=== PATIENT | male | born 1985 | race Hispanic/Latino ===

== ENCOUNTER 2020-04-12 14:14 | Inpatient (IN) | payer BC, OTHER ==
[~2020-04-12] VITALS: Ht 170.2 cm; Wt 77.1 kg
--- OUTSIDE RECORDS SUMMARY | 2020-04-12 14:16 | XMS REPORT | Continuity of Care Document ---
Author Author [facility] Organization [facility] Address [address] [place] [address] Phone Unavailable Care Team Providers Care Camp Dining Room Attendant Name Role Phone Unavailable Unavailable Payers Payer Name Policy Type Policy Number Effective Date Expiration Date S ource Problems This patient has no known problems. Allergies, Adverse Reactions, Alerts Allergy Name Allergy Type Status Severity Reaction(s) Onset Date Inacti ve Date Treating Clinician Comments Source No Known Allergies DA Active U 2020-04-10 00:00:00 [facility] No Known Allergies DA Active U 2019-01-28 00:00:00 [facility] No Known Allergies DA Active U 2017-06-08 00:00:00 [facility] Medications This patient has no known medications. Procedures This patient has no known procedures. Results Test Description Test Time Test Comments Results Result Comments Source STREPTOCOCCUS PCR SCREEN 2020-04-10 16:52:00 Test Item STREPTOCOCCUS DYSGALACTIAE (test code = STREPGC) NEGATIVE FOR G/C N EGATIVE STREPA MOLECULAR (test code = STREPAMOL) NEGATIVE FOR GRP A NEGATIV E URINALYSIS [id number] 15:05:00* Test Item Value Reference Range Interpretation Comments UA COLOR (test code = COLU) YELLOW YELLOW UA APPEARANCE (test code = APPU) HAZY CLEAR A UA GLUCOSE DIPSTICK (test code = DGLUU) NEGATIVE mg/dL NEGATIVE UA BILIRUBIN DIPSTICK (test code = BILU) NEGATIVE NEGATIVE UA KETONE DIPSTICK (test code = KETU) TRACE mg/dL NEGATIVE UA SPECIFIC GRAVITY (test code = SGU) 1.025 1.001-1.035 UA BLOOD DIPSTICK (test code = ROCIO) NEGATIVE NEGATIVE UA PH DIPSTICK (test code = CARLOS) 6.0 5.0-8.0 UA PROTEIN DIPSTICK (test code = PROU) NEGATIVE mg/dL Neg-15 UA UROBILINIOGEN DIPSTICK (test code = URO) 1 mg/dL (1+) mg/dL 0.0 -0.2 UA NITRITE DIPSTICK (test code = REBECCA) NEGATIVE NEGATIVE UA LEUKOCYTE ESTERASE W REFLEX (test code = LEUUR) NEGATIVE NEG ATIVE UA WBC (test code = WBCU) per HPF 0-5 UA RBC (test code = RBCU) per HPF 0-5 UA EPITHELIAL CELLS (test code = EPIU) per HPF Few UA BACTERIA (test code = BACU) per HPF NONE Urine Source? Clean CatchURINALYSIS [id number] 15:05:00* Test Item Value Reference Range Interpretation Comments UA COLOR (test code = COLU) YELLOW YELLOW UA APPEARANCE (test code = APPU) HAZY CLEAR A UA GLUCOSE DIPSTICK (test code = DGLUU) NEGATIVE mg/dL NEGATIVE UA BILIRUBIN DIPSTICK (test code = BILU) NEGATIVE NEGATIVE UA KETONE DIPSTICK (test code = KETU) TRACE mg/dL NEGATIVE UA SPECIFIC GRAVITY (test code = SGU) 1.025 1.001-1.035 UA BLOOD DIPSTICK (test code = ROCIO) NEGATIVE NEGATIVE UA PH DIPSTICK (test code = CARLOS) 6.0 5.0-8.0 UA PROTEIN DIPSTICK (test code = PROU) NEGATIVE mg/dL Neg-15 UA UROBILINIOGEN DIPSTICK (test code = URO) 1 mg/dL (1+) mg/dL 0.0 -0.2 UA NITRITE DIPSTICK (test code = REBECCA) NEGATIVE NEGATIVE UA LEUKOCYTE ESTERASE W REFLEX (test code = LEUUR) NEGATIVE NEG ATIVE UA WBC (test code = WBCU) 0-5 per HPF 0-5 UA RBC (test code = RBCU) 0-2 #/HPF 0-5 UA EPITHELIAL CELLS (test code = EPIU) FEW per HPF FEW UA BACTERIA (test code = BACU) FEW #/HPF NONE A UA HYALINE CAST (test code = HYALU) 0-2 #/LPF 0-5 UA MUCUS (test code = MUCU) MANY #/LPF FEW A Urine Source? Clean Catch- XR CHEST 1 [id number] 13:03:00 FAX: Joyce Rich NP [place]: St: REG FAX: Meño Sandra [phone] Name: JOAQUIN DOYLE [facility] : 1985 Age/S: 34/M [address] [facility] Unit #: [id number] Loc: [place] [address] Phys: Joyce Rich NP Acct: [id number] Dis Date: Status: REG ER PHONE #: [phone] Exam Date: 04/10/2020 1245 FAX #: [phone] Reason: CODE SEPSIS EXAMS: CPT CODE: [id number] XR CHEST 1 V 89970 HISTORY: Sepsis. COMPARISON: March 20, 2015. Location: [facility]. No acute infiltrates, effusion or congestion is noted. Suboptimal inspiration. Dependent changes. Mild cardiomegaly. IMPRESSION: No acute infiltrates, effusion or congestion. at 1303 Reported and signed by: Nick Dowd M.D. CC: Joyce Rich NP; Meño Sandra MD Technologist: Gita Gonsalez(R) Trnscrd Date/Time/By: 04/10/2020 (0749) : By: [email or web address] Orig Print D/T: S: 12/2019 (2927) PAGE 1 Signed Repo rt BASIC METABOLIC [id number] 12:53:00* Test Item Value Reference Range Interpretation Comments SODIUM (test code = NA) 136 mmol/L 136-145 N POTASSIUM (test code = K) 3.8 mmol/L 3.5-5.1 N CHLORIDE (test code = CL) 102.0 mmol/L 98-107 N CARBON DIOXIDE (test code = CO2) 27.0 mmol/L 21-32 N ANION GAP (test code = GAP) 10.8 10-20 N GLUCOSE (test code = GLU) 88 mg/dL 74-106 N BLOOD UREA NITROGEN (test code = BUN) 13 mg/dL 7-18 N GLOMERULAR FILTRATION RATE (test code = GFR) > 60 mL/min >=60 Estimated GFR by using Modified MDRD formula.Chronic kidney disease is defined as either kidney damageor GFR <60 mL/min/1.73 m2 for >3 months. CREATININE (test code = CREAT) 1.10 mg/dL 0.7-1.3 N BUN/CREATININE RATIO (test code = BUN/CREA) 11.5 10-20 N CALCIUM (test code = CA) 8.7 mg/dL 8.5-10.1 N HEPATIC FUNCTION [id number] 12:53:00* Test Item Value Reference Range Interpretation Comments TOTAL PROTEIN (test code = PROT) 8.4 gram/dL 6.4-8.2 H ALBUMIN (test code = ALB) 3.8 g/dL 3.4-5.0 N GLOBULIN (test code = GLOB) 4.6 gram/dL 2.7-4.2 H ALBUMIN/GLOBULIN RATIO (test code = A/G) 0.8 0.75-1.50 N BILIRUBIN TOTAL (test code = BILT) 0.40 mg/dL 0.0-1.0 N BILIRUBIN DIRECT (test code = BILD) 0.18 mg/dL 0.0-0.20 N SGOT/AST (test code = AST) 12 IUnit/L 15-37 L SGPT/ALT (test code = ALT) 19 IUnit/L 12-78 N ALKALINE PHOSPHATASE TOTAL (test code = ALKP) 73 IUnit/L 45-117 N Note change in reference range due to change in reagent. [id number] 12:53:00* Test Item Value Reference Range Interpretation Comments TROPONIN-I (test code = TROPI) <0.015 ng/mL 0-0.045 N LACTIC [id number] 12:53:00* Test Item Value Reference Range Interpretation Comments LACTIC ACID (test code = LACT) 1.2 mmol/L 0.4-1.9 N BASIC METABOLIC [id number] 12:44:00* Test Item Value Reference Range Interpretation Comments SODIUM (test code = NA) 136 mmol/L 136-145 N POTASSIUM (test code = K) 3.8 mmol/L 3.5-5.1 N CHLORIDE (test code = CL) 102.0 mmol/L 98-107 N CARBON DIOXIDE (test code = CO2) mmol/L 21-32 ANION GAP (test code = GAP) 10-20 GLUCOSE (test code = GLU) mg/dL 74-106 BLOOD UREA NITROGEN (test code = BUN) mg/dL 7-18 GLOMERULAR FILTRATION RATE (test code = GFR) mL/min >=60 CREATININE (test code = CREAT) mg/dL 0.7-1.3 BUN/CREATININE RATIO (test code = BUN/CREA) 10-20 CALCIUM (test code = CA) mg/dL 8.5-10.1 HEPATIC FUNCTION [id number] 12:44:00* Test Item Value Reference Range Interpretation Comments TOTAL PROTEIN (test code = PROT) gram/dL 6.4-8.2 ALBUMIN (test code = ALB) g/dL 3.4-5.0 GLOBULIN (test code = GLOB) gram/dL 2.7-4.2 ALBUMIN/GLOBULIN RATIO (test code = A/G) 0.75-1.50 BILIRUBIN TOTAL (test code = BILT) mg/dL 0.0-1.0 BILIRUBIN DIRECT (test code = BILD) mg/dL 0.0-0.20 SGOT/AST (test code = AST) IUnit/L 15-37 SGPT/ALT (test code = ALT) IUnit/L 12-78 ALKALINE PHOSPHATASE TOTAL (test code = ALKP) IUnit/L 45-117 [id number] 12:44:00* Test Item Value Reference Range Interpretation Comments TROPONIN-I (test code = TROPI) ng/mL 0-0.045 CBC W/AUTO [id number] 12:36:00* Test Item Value Reference Range Interpretation Comments WHITE BLOOD CELL (test code = WBC) 6.9 K/mm3 4.5-12.5 N RED BLOOD CELL (test code = RBC) 5.29 mill/mm3 4.0-5.8 N HEMOGLOBIN (test code = HGB) 16.3 gram/dL 13.0-17.5 N HEMATOCRIT (test code = HCT) 48.7 % 42.0-52.0 N MEAN CELL VOLUME (test code = MCV) 92.1 fL 80-98 N MEAN CELL HGB (test code = MCH) 30.8 picogram 27.0-33.0 N MEAN CELL HGB CONCETRATION (test code = MCHC) 33.5 gram/dL 33.0-36. 0 N RED CELL DISTRIBUTION WIDTH (test code = RDW) 13.0 % 11.6-16. 2 N RED CELL DISTRIBUTION WIDTH SD (test code = RDW-SD) 43.8 fL 37 .0-51.0 N PLATELET COUNT (test code = PLT) 247 K/mm3 150-450 N MEAN PLATELET VOLUME (test code = MPV) 9.3 fL 6.7-11.0 N NEUTROPHIL % (test code = NT%) 77.7 % 39.0-69.0 H IMMATURE GRANULOCYTE % (test code = IG%) 0.3 % 0.0-5.0 N LYMPHOCYTE % (test code = LY%) 12.9 % 25.0-55.0 L MONOCYTE % (test code = MO%) 8.7 % 0.0-10.0 N EOSINOPHIL % (test code = EO%) 0.1 % 0.0-5.0 N BASOPHIL % (test code = BA%) 0.3 % 0.0-1.0 N NUCLEATED RBC % (test code = NRBC%) 0.0 % 0-0 N NEUTROPHIL # (test code = NT#) 5.34 K/mm3 1.8-7.7 N IMMATURE GRANULOCYTE # (test code = IG#) 0.02 x10 3/uL 0-0.03 N LYMPHOCYTE # (test code = LY#) 0.89 K/mm3 1.0-5.0 L MONOCYTE # (test code = MO#) 0.60 K/mm3 0-0.8 N EOSINOPHIL # (test code = EO#) 0.01 K/mm3 0.0-0.5 N BASOPHIL # (test code = BA#) 0.02 K/mm3 0.0-0.2 N NUCLEATED RBC # (test code = NRBC#) 0.00 K/mm3 0.0-0.1 N MANUAL DIFF REQUIRED (test code = MDIFF) NO CBC W/AUTO [id number] 12:33:00* Test Item Value Reference Range Interpretation Comments WHITE BLOOD CELL (test code = WBC) K/mm3 4.5-12.5 RED BLOOD CELL (test code = RBC) mill/mm3 4.0-5.8 HEMOGLOBIN (test code = HGB) 16.3 gram/dL 13.0-17.5 N HEMATOCRIT (test code = HCT) 48.7 % 42.0-52.0 N MEAN CELL VOLUME (test code = MCV) fL 80-98 MEAN CELL HGB (test code = MCH) picogram 27.0-33.0 MEAN CELL HGB CONCETRATION (test code = MCHC) gram/dL 33.0-36. 0 RED CELL DISTRIBUTION WIDTH (test code = RDW) % 11.6-16. 2 RED CELL DISTRIBUTION WIDTH SD (test code = RDW-SD) fL 37 .0-51.0 PLATELET COUNT (test code = PLT) K/mm3 150-450 MEAN PLATELET VOLUME (test code = MPV) fL 6.7-11.0 NEUTROPHIL % (test code = NT%) % 39.0-69.0 IMMATURE GRANULOCYTE % (test code = IG%) % 0.0-5.0 LYMPHOCYTE % (test code = LY%) % 25.0-55.0 MONOCYTE % (test code = MO%) % 0.0-10.0 EOSINOPHIL % (test code = EO%) % 0.0-5.0 BASOPHIL % (test code = BA%) % 0.0-1.0 NEUTROPHIL # (test code = NT#) K/mm3 1.8-7.7 LYMPHOCYTE # (test code = LY#) K/mm3 1.0-5.0 MONOCYTE # (test code = MO#) K/mm3 0-0.8 EOSINOPHIL # (test code = EO#) K/mm3 0.0-0.5 BASOPHIL # (test code = BA#) K/mm3 0.0-0.2
[2020-04-12 14:51] LABS: BASOPHILS % 0.1 % (0.0-1.0); EOSINOPHILS % 0.1 % (0.0-6.0); HEMATOCRIT 49.8 % (38.2-49.6); HEMOGLOBIN 16.5 g/dL (14.0-18.0); LYMPHOCYTES # (AUTO) 0.8 (1.0-3.2); LYMPHOCYTES % 11.6 % (18.0-39.1); MEAN CORPUSCULAR HEMOGLOBIN 29.9 pg (28-32); MEAN CORPUSCULAR HGB CONC 33.1 g/dL (31-35); MEAN CORPUSCULAR VOLUME 90.4 fL (81-99); MONOCYTES # (AUTO) 0.5 (0.2-0.8); MONOCYTES % 6.8 % (4.4-11.3); NEUTROPHILS # (AUTO) 5.7 (2.1-6.9); PLATELET COUNT 297 x10e3/uL (140-360); RED BLOOD COUNT 5.51 x10e6/uL (4.3-5.7); RED CELL DISTRIBUTION WIDTH 12.7 % (11.7-14.4)
[2020-04-12] MEDS ORDERED: CEFTRIAXONE SOD 1 GM/NS 50 ML 50 ML IV ONE (15:00)
--- NOTE | 2020-04-12 15:06 | NUR ---
pt tearful, tried to re assure pt he will do well. updated plan of care. expressed concern for pt. tearful.
[2020-04-12 15:11] LABS: ALANINE AMINOTRANSFERASE 15 IU/L (0-55); ALBUMIN/GLOBULIN RATIO 0.9 (0.8-2.0); ALKALINE PHOSPHATASE 70 IU/L (40-150); ANION GAP 14.8 mmol/L (8-16); BLOOD UREA NITROGEN 9 mg/dL (7-26); BUN/CREATININE RATIO 7 (6-25); CALCIUM 9.2 mg/dL (8.4-10.2); CARBON DIOXIDE 25 mmol/L (22-29); CHLORIDE 100 mmol/L (98-107); CREATINE KINASE 83 IU/L (30-200); CREATININE, SERUM 1.25 mg/dL (0.72-1.25); EST GLOMERULAR FILTRATION RATE > 60 ML/MIN (60-); GLUCOSE 99 mg/dL (74-118); POTASSIUM 3.8 mmol/L (3.5-5.1); SODIUM 136 mmol/L (136-145)
[2020-04-12] MEDS ORDERED: CEFTRIAXONE SOD 1 GM VIAL ONE (15:22)
[2020-04-12] MEDS ORDERED: DIPHENHYDRAMINE HCL INJ 50 MG/ML VIAL ONE (15:28)
[2020-04-12] MEDS ORDERED: METHYLPREDNISOLONE SOD SUCC 125 MG/2ML VIAL ONE (15:28)
[2020-04-12] MEDS ORDERED: FAMOTIDINE 20 MG/2 ML VIAL IV ONE (15:29)
[2020-04-12] MEDS: ACETAMINOPHEN 325 MG TAB PO PRN ×2 (15:43→23:38)
--- NOTE | 2020-04-12 15:51 | NUR ---
drinking ice water without difficulty.
--- NOTE | 2020-04-12 15:54 | Diagnostic Imaging Report ---
EXAM: CHEST SINGLE (PORTABLE) DATE: 04/12/2020 3:31 PM INDICATION: Shortness of breath COMPARISON: None FINDINGS: Lung volumes are low/there is poor inspiratory effort limiting evaluation. The trachea is midline. There is no evidence for large focal consolidation, pneumothorax, or significant pleural effusion. The cardiomediastinal silhouette is within normal limits. No acute osseous abnormality is identified. The surrounding soft tissues are unremarkable. IMPRESSION: Low lung volumes. Otherwise, no acute cardiopulmonary process identified. Signed by: Dr. Julius Raphael MD on 04/12/2020 3:51 PM
[2020-04-12] MEDS ORDERED: DIPHENHYDRAMINE HCL INJ 50 MG/ML VIAL IV ONE (16:00)
--- NOTE | 2020-04-12 16:12 | NUR ---
SHEBIB SEEING PT
--- NOTE | 2020-04-12 16:36 | NUR ---
type and screen done
--- OUTSIDE RECORDS SUMMARY | 2020-04-12 16:54 | XMS REPORT | Continuity of Care Document ---
Author Author [facility] t Organization [facility] Address [address] [place] [id number] Phone Unavailable Care Team Providers Care Property Appraiser Name Role Phone Jamal PRUITT Attsilvia Unavailable CARA PRUITTphyjamal Unavailable Payers Payer Name Policy Type Policy Number Effective Date Expiration Date S ource Problems This patient has no known problems. Allergies, Adverse Reactions, Alerts Allergy Name Allergy Type Status Severity Reaction(s) Onset Date Inacti ve Date Treating Clinician Comments Source No Known Allergies DA Active U 2020-04-10 00:00:00 [facility] No Known Allergies DA Active U 2019-01-28 00:00:00 [facility] No Known Allergies DA Active U 2017-06-08 00:00:00 [facility] Medications This patient has no known medications. Procedures This patient has no known procedures. Results Test Description Test Time Test Comments Results Result Comments Source CHEST SINGLE (PORTABLE) 2020-04-12 15:49:00 [facility] [address] [place], [place] [address] Patient Name: JOAQUIN DOYLE MR #: [id number] : 1985 Age/Sex: 34/M Req #: [id number] Adm Physician: Ordered by: DIANA PRUITT DO Report #: [id number] Location: ER Room/Bed: Procedure: [id number] DX/CHEST SINGLE (PORTABLE) Exam Date: 04/12/20 Exam Time: 1531 REPORT STATUS: Signed EXAM: CHEST SINGLE (PORTABLE) DATE: 04/12/2020 3:31 PM INDICATION: Shortness of breath COMPARISON: None FINDINGS: Lung volumes are low/there is poor inspiratory effort limiting evaluation. The trachea is midline. There is no evidence for large focal consolidation, pneumothorax, or significant pleural effusion. The cardiomediastinal silhouette is within normal limits. No acute osseous abnormality is identified. The surrounding soft tissues are unremarkable. IMPRESSION: Low lung volumes. Otherwise, no acute cardiopulmonary process identified. Signed by: Dr. Julius Raphael MD on 04/12/2020 3:51 PM Di ctated By: JULIUS RAPHAEL MD 50 Transcribed By: CHUYITA on 04/12/201550 COPY TO: DIANA PRUITT DO STREPTOCOCCUS PCR SCREEN 2020-04-10 16:52:00 Test Item STREPTOCOCCUS DYSGALACTIAE (test code = STREPGC) NEGATIVE FOR G/C N EGATIVE STREPA MOLECULAR (test code = STREPAMOL) NEGATIVE FOR GRP A NEGATIV E URINALYSIS [id number] 15:05:00* Test Item Value Reference Range Interpretation [...] per HPF NONE Urine Source? Clean CatchURINALYSIS [id number] 15:05:00* Test Item Value Reference Range Interpretation [...] Urine Source? Clean Catch- XR CHEST 1 [id number] 13:03:00 FAX: Joyce Rich INSTRUMENT CHECKER [place]: B St: REG FAX: Meño Sandra [phone] Name: JOAQUIN DOYLE [facility] : 1985 Age/S: 34/M [address] [facility] Unit #: [id number] Loc: [place], [place] [address] Phys: Joyce Rich NP Acct: [id number] Dis Date: Status: REG ER PHONE #: [phone] Exam Date: 04/10/2020 1245 FAX #: [phone] Reason: CODE SEPSIS EXAMS: CPT CODE: [id number] XR CHEST 1 V 03319 HISTORY: Sepsis. COMPARISON: March 20, 2015. Location: [facility]. No acute infiltrates, effusion or congestion is noted. Suboptimal inspiration. Dependent changes. Mild cardiomegaly. IMPRESSION: No acute infiltrates, effusion or congestion. at 1303 Reported and signed by: Nick Dowd M.D. CC: Joyce Rich INSTRUMENT CHECKER; Meño Sandra MD Technologist: Gita Gonsalez(Yohan) Trnscrd Date/Time/By: 04/10/2020 (2128) : By: [email or web address] Orig Print D/T: S: 12/2019 (6909) PAGE 1 Signed Repo rt BASIC METABOLIC [id number] 12:53:00* Test Item Value Reference Range Interpretation [...] CA) 8.7 mg/dL 8.5-10.1 N HEPATIC FUNCTION [id number] 12:53:00* Test Item Value Reference Range Interpretation [...] reference range due to change in reagent. [id number] 12:53:00* Test Item Value Reference Range Interpretation Comments TROPONIN-I (test code = TROPI) <0.015 ng/mL 0-0.045 N LACTIC [id number] 12:53:00* Test Item Value Reference Range Interpretation Comments LACTIC ACID (test code = LACT) 1.2 mmol/L 0.4-1.9 N BASIC METABOLIC [id number] 12:44:00* Test Item Value Reference Range Interpretation [...] code = CA) mg/dL 8.5-10.1 HEPATIC FUNCTION [id number] 12:44:00* Test Item Value Reference Range Interpretation [...] TOTAL (test code = ALKP) IUnit/L 45-117 [id number] 12:44:00* Test Item Value Reference Range Interpretation Comments TROPONIN-I (test code = TROPI) ng/mL 0-0.045 CBC W/AUTO [id number] 12:36:00* Test Item Value Reference Range Interpretation [...] (test code = MDIFF) NO CBC W/AUTO [id number] 12:33:00* Test Item Value Reference Range Interpretation [...]
[2020-04-12] MEDS ORDERED: REMDESIVIR 200 MG IV SCH (17:00)
[2020-04-12] MEDS: REMDESIVIR IV SCH (17:40)
[2020-04-12] MEDS: SODIUM CHLORIDE IV SCH (17:40)
[2020-04-12 17:50] VITALS: BP 127/79
[2020-04-12] MEDS: SODIUM CHLORIDE IV NR ×2 (17:50→21:41)
[2020-04-12] MEDS: REMDESIVIR IV NR ×2 (17:50→21:41)
--- NOTE | 2020-04-12 18:02 | Emergency Department Note ---
History of Present Illnes History of Present Illness Chief Complaint: COVID PUI History of Present Illness This is a 34 year old male arrives to the ED with complaints of cough, shortness of breath and dyspnea for several days. Patient states he was tested for COVID 19 and found that he was positive. Patient states shortness of breath is getting worse. . Historian: Patient Arrival Mode: Car Onset (how long ago): hour(s) Severity: moderate Onset quality: sudden Timing of current episode: constant Progression: worsening Past Medical/Family History Physician Review I have reviewed the patient's past medical and family history. Any updates have been documented here. Past Medical History Recent Fever: Yes Clinical Suspicion of Infectio: Yes New/Unexplained Change in Ment: No Past Medical History: None Other Surgery: LEFT KNEE SURGERY Social History Smoking Cessation: Unknown if ever smoked Counseling Performed: No Alcohol Use: Occasional Any Illegal Drug Use: No TB Exposure/Symptoms: No Physically hurt or threatened: No Other Last Tetanus: UNKNOWN Last Flu: no Last Pneumovax: no Review of Systems Review of Systems Constitutional: chills, fever EENTM: no symptoms Cardiovascular: no symptoms Respiratory: cough, dyspnea Gastrointestinal: no symptoms Genitourinary: no symptoms Musculoskeletal: no symptoms Neurological: no symptoms Psychological: no symptoms Endocrine: no symptoms Hematological/Lymphatic: no symptoms Review of other systems All other systems reviewed and negative. Physical Exam Related Data Allergies: Coded Allergies: No Known Drug Allergies (Verified Allergy, Mild, 10/08/10) Triage Vital Signs Vital Signs Date Time Temp Pulse Resp B/P (MAP) Pulse Ox O2 Delivery O2 Flow Rate FiO2 04/12/20 14:15 102.6 88 28 124/84 100 04/12/20 16:03 2.0 Vital signs reviewed: Yes Physical Exam CONSTITUTIONAL Constitutional: well-developed, well-nourished HENT HENT: normocephalic, atraumatic, oropharynx clear/moist, nose normal HENT L/R: left ext ear normal, right ext ear normal EYES Eyes: PERRL, conjunctivae normal NECK Neck: ROM normal PULMONARY Pulmonary: effort normal, respiratory distress (mild tachypnea) CARDIOVASCULAR Cardiovascular: regular rhythm, heart sounds normal, capillary refill normal, tachycardia GASTROINTESTINAL Abdominal: soft, nontender, bowel sounds normal GENITOURINARY Genitourinary: exam deferred SKIN Skin: warm, dry MUSCULOSKELETAL Musculoskeletal: ROM normal NEUROLOGICAL Neurological: alert, oriented x 3, no gross motor or sensory deficits PSYCHOLOGICAL Psychological: mood/affect normal, judgement normal Results Laboratory Result Diagram: 04/12/20 1430 04/12/20 1430 Laboratory Laboratory Tests Test 04/12/20 14:30 White Blood Count 7.04 x10e3/uL (4.8-10.8) Red Blood Count 5.51 x10e6/uL (4.3-5.7) Hemoglobin 16.5 g/dL (14.0-18.0) Hematocrit 49.8 % (38.2-49.6) Mean Corpuscular Volume 90.4 fL (81-99) Mean Corpuscular Hemoglobin 29.9 pg (28-32) Mean Corpuscular Hemoglobin Concent 33.1 g/dL (31-35) Red Cell Distribution Width 12.7 % (11.7-14.4) Platelet Count 297 x10e3/uL (140-360) Neutrophils (%) (Auto) 81.0 % (38.7-80.0) Lymphocytes (%) (Auto) 11.6 % (18.0-39.1) Monocytes (%) (Auto) 6.8 % (4.4-11.3) Eosinophils (%) (Auto) 0.1 % (0.0-6.0) Basophils (%) (Auto) 0.1 % (0.0-1.0) Neutrophils # (Auto) 5.7 (2.1-6.9) Lymphocytes # (Auto) 0.8 (1.0-3.2) Monocytes # (Auto) 0.5 (0.2-0.8) Eosinophils # (Auto) 0.0 (0.0-0.4) Basophils # (Auto) 0.0 (0.0-0.1) Absolute Immature Granulocyte (auto 0.03 x10e3/uL (0-0.1) Sodium Level 136 mmol/L (136-145) Potassium Level 3.8 mmol/L (3.5-5.1) Chloride Level 100 mmol/L (98-107) Carbon Dioxide Level 25 mmol/L (22-29) Anion Gap 14.8 mmol/L (8-16) Blood Urea Nitrogen 9 mg/dL (7-26) Creatinine 1.25 mg/dL (0.72-1.25) Estimat Glomerular Filtration Rate > 60 ML/MIN (60-) BUN/Creatinine Ratio 7 (6-25) Glucose Level 99 mg/dL (74-118) Calcium Level 9.2 mg/dL (8.4-10.2) Total Bilirubin 0.5 mg/dL (0.2-1.2) Aspartate Amino Transf (AST/SGOT) 15 IU/L (5-34) Alanine Aminotransferase (ALT/SGPT) 15 IU/L (0-55) Alkaline Phosphatase 70 IU/L (40-150) Creatine Kinase 83 IU/L (30-200) Creatine Kinase MB 0.10 ng/mL (0-5.0) Troponin I < 0.001 ng/mL (0-0.300) Total Protein 8.4 g/dL (6.5-8.1) Albumin 4.0 g/dL (3.5-5.0) Globulin 4.4 g/dL (2.3-3.5) Albumin/Globulin Ratio 0.9 (0.8-2.0) Lab results reviewed: Yes Imaging Imaging results reviewed: Yes Impressions IMPRESSION: Low lung volumes. Otherwise, no acute cardiopulmonary process identified Procedures 12 Lead ECG Interpretation Prior CHAIN MAKER MACHINE tracings: reviewed Rhythm: sinus rhythm Rate: normal QRS axis: normal ST segments normal: Yes T waves normal: Yes Clinical Impression: normal ECG Critical Care Time Total Critical Care Time (min): 35 Critical care time exclusive o: separately billable procedures Critcal care necessary due to: renal failure Subsequent provider I assumed direction of critical care for this patient from another provider of my specialty. Assessment & Plan Assessment & Plan Final Impression: (1) COVID-19 (2) DYSPNEA, UNSPECIFIED Assessment & Plan CBC, CMP, type & cross Infectious disease consult Pulmonary consult Depart Disposition: ADMITTED Last Vital Signs Date Time Temp Pulse Resp B/P (MAP) Pulse Ox O2 Delivery O2 Flow Rate FiO2 04/12/20 16:03 103 20 100 2.0 04/12/20 15:59 124/81 04/12/20 14:15 102.6 DIANA PRUITT DO Apr 12, 2020 18:02
[2020-04-12 18:42] VITALS: BP 127/79
--- NOTE | 2020-04-12 19:00 | NUR ---
Resumed care of patient. Patient awake and resting in bed, no s/s of distress at this time. All safety measures in place. Will continue to monitor.
--- NOTE | 2020-04-12 19:15 | Consultation ---
DATE OF CONSULTATION: Pulmonary Critical Care Consultation CHIEF COMPLAINT: Fever and cough for 5 days. HISTORY OF PRESENT ILLNESS: The patient is a 34-year-old man. He has no prior asthma or heart disease or lung disease. He reports fever and cough for 5 days. He is not having any neck pain. He denies any chest pain. He has no nausea or vomiting. He did have some shortness of breath. PAST MEDICAL HISTORY: 1. No prior history of asthma. 2. No prior heart disease. 3. No prior history of diabetes. PAST SURGICAL HISTORY: Noncontributory. ALLERGIES: NO KNOWN DRUG ALLERGIES. FAMILY HISTORY: Noncontributory. SOCIAL HISTORY: The patient rarely drinks. He is not an active smoker. REVIEW OF SYSTEMS: He has fevers. He has no headache. He is not having any neck pain. He does have some cough. There is some mild dyspnea. He has no chest pain. He has no nausea or vomiting. He has no leg edema. PHYSICAL EXAMINATION: VITAL SIGNS: The patient is afebrile. The blood pressure is 127/79 and saturation is 98% on 2 L. HEENT: Shows no facial swelling or erythema. CARDIAC: Reveals regular rate and rhythm with a normal S1 and S2. LUNGS: Auscultation of lungs shows crackles at both bases. There is no wheezing. ABDOMEN: Soft and nontender. There is no rebound or guarding. EXTREMITIES: Shows no leg edema or calf tenderness. There is no cyanosis or clubbing. SKIN: Shows no rashes. NEUROLOGICAL: Shows no focal abnormalities. LABORATORY DATA: White blood cell count is 7 and the hemoglobin 16.5. The platelet count is 297. The sodium is 136 and the BUN to creatinine ratio is 9 to 1.25. RADIOGRAPHIC DATA: Chest x-ray shows low lung volumes. IMPRESSION: 1. Viral pneumonia. 2. COVID-19 infection. PLAN: 1. Judicious use of IV fluids. 2. Tylenol. 3. Zithromax. 4. The patient will receive remdesivir. 5. Oxygen as needed. Cody Bill MD [facility]/MODL /[id number]
--- NOTE | 2020-04-12 19:22 | NUR ---
Report and care hand off given to Mariajose.
[2020-04-12 20:00] VITALS: BP 125/90
--- NOTE | 2020-04-12 20:06 | Consultation ---
DATE OF CONSULTATION: REASON FOR CONSULTATION: COVID-19. HISTORY OF PRESENT ILLNESS: This is a 34-year-old male with no past medical history, comes in with 5 of days, fever, chills, cough, shortness of breath, skin rash with itching, getting progressively worse over the last 3 days, came to the emergency room. In the emergency room, his COVID-19 was positive. PAST MEDICAL HISTORY: Denies. PAST SURGICAL HISTORY: Denies. ALLERGIES: NKA. SOCIAL HISTORY: He denies smoking, drug abuse, or alcohol abuse. LABORATORY DATA: Reviewed. His white count 7.04, hemoglobin 16.5, his platelet 197. His COVID-19 was positive. His white count is 7.04, hemoglobin 16. Chest x-ray showed no acute pulmonary infiltrate. PHYSICAL EXAMINATION: GENERAL: Currently alert, oriented, does not seem to be acute distress. VITAL SIGNS: Running fever. HEENT: Not icteric. NECK: Supple. CHEST: Few crackles bilateral. HEART: S1 and S2. No S3, S4, or murmur. ABDOMEN: Soft. Bowel sounds present. No tenderness. EXTREMITIES: No edema. LABORATORY DATA: An ABG was done in the emergency room and he was hypoxemic ASSESSMENT AND PLAN: Hypoxemia, COVID-19. Discussed with the patient. He greed to receive convalescent plasma. He also agreed to receive Remdesivir. The patient signed consent for both. We will also put him on Rocephin and azithromycin. For community-acquired pneumonia, on Lovenox. We will obtain a daily CBC and daily Chem panel. We will reassess in the morning. MD HOANG Merchant/MARIAN /[id number]
[2020-04-12 21:22] VITALS: BP 125/90
[2020-04-12] MEDS: ENOXAPARIN 30 MG/0.3 ML SYR SC SCH (21:41)
[2020-04-13] VITALS (7 sets, daily range): BP systolic 112–130; BP diastolic 77–87
--- NOTE | 2020-04-13 04:20 | NUR ---
Patient stating, "I feel like I can't breathe." O2 stats 100% on 2L NC. Attempted to raise HOB, but patient stated that he did not want to sit up and lowered HOB back down. Provided education on elevating HOB and splinting while coughing to facilitate deep breathing. Attempted to raise HOB, but patient lowered HOB once again. Lung sounds clear upon auscultation. Instructed patient to take a deep breath during assessment, but patient did not follow instructions, saying that he needed to have a bowel movement but felt like he was too short of breath to get up. Provided O2 extension and instructed patient that he should be able to go to restroom while keeping O2 in place. Asked patient if he needed assisted to restroom. Patient declined and stated he was going back to sleep and would try later. Vital signs stable, no s/s of acute distress at this time. Bed locked and in low position, side rails up x3, call light placed within reach. Patient instructed to call for assistance if needed, verbalized understanding. Will continue to monitor.
[2020-04-13 05:24] LABS: BASOPHILS % 0.4 % (0.0-1.0); EOSINOPHILS % 0.2 % (0.0-6.0); HEMATOCRIT 49.7 % (38.2-49.6); HEMOGLOBIN 16.7 g/dL (14.0-18.0); LYMPHOCYTES # (AUTO) 0.6 (1.0-3.2); LYMPHOCYTES % 11.1 % (18.0-39.1); MEAN CORPUSCULAR HEMOGLOBIN 30.8 pg (28-32); MEAN CORPUSCULAR HGB CONC 33.6 g/dL (31-35); MEAN CORPUSCULAR VOLUME 91.5 fL (81-99); MONOCYTES # (AUTO) 0.4 (0.2-0.8); MONOCYTES % 7.2 % (4.4-11.3); NEUTROPHILS # (AUTO) 4.6 (2.1-6.9); NEUTROPHILS % 80.7 % (38.7-80.0); PLATELET COUNT 221 x10e3/uL (140-360); RED BLOOD COUNT 5.43 x10e6/uL (4.3-5.7); RED CELL DISTRIBUTION WIDTH 12.6 % (11.7-14.4)
[2020-04-13] MEDS ORDERED: SODIUM CHLORIDE 0.9% 250ML 250 ML ONE ×3 (05:48→13:28)
[2020-04-13 05:51] LABS: ALANINE AMINOTRANSFERASE 13 IU/L (0-55); ALBUMIN 3.5 g/dL (3.5-5.0); ALBUMIN/GLOBULIN RATIO 0.8 (0.8-2.0); ALKALINE PHOSPHATASE 60 IU/L (40-150); ANION GAP 14.8 mmol/L (8-16); BLOOD UREA NITROGEN 9 mg/dL (7-26); BUN/CREATININE RATIO 9 (6-25); CALCIUM 8.8 mg/dL (8.4-10.2); CARBON DIOXIDE 23 mmol/L (22-29); CHLORIDE 100 mmol/L (98-107); CREATININE, SERUM 0.99 mg/dL (0.72-1.25); EST GLOMERULAR FILTRATION RATE > 60 ML/MIN (60-); GLUCOSE 98 mg/dL (74-118); POTASSIUM 3.8 mmol/L (3.5-5.1); SODIUM 134 mmol/L (136-145)
--- NOTE | 2020-04-13 06:22 | NUR ---
Started plasma transfusion at 0601. Vital signs stable from baseline. No s/s of distress or transfusion reaction noted. Patient tolerating well. Will continue to monitor.
--- NOTE | 2020-04-13 06:46 | NUR ---
Plasma transfusion completed. Patient tolerated well, vital signs stable from baseline, no s/s of distress at this time.
[2020-04-13] MEDS: ENOXAPARIN 30 MG/0.3 ML SYR SC SCH ×2 (08:06→21:55)
[2020-04-13] MEDS ORDERED: REMDESIVIR 100 MG IV SCH (09:00)
[2020-04-13] MEDS: DIPHENHYDRAMINE HCL 30 GM TUBE TOP PRN (11:13)
[2020-04-13] MEDS ORDERED: GUAIFENESIN 600MG/DEXTROMETHORPHAN 30MG TABSR PO PRN (11:45)
[2020-04-13] MEDS: BENZONATATE 100 MG CAP PO PRN ×2 (12:34→21:55)
[2020-04-13] MEDS: AZITHROMYCIN 500MG/NS 250 ML 250 ML IV SCH (13:26)
--- NOTE | 2020-04-13 14:49 | Progress Note ---
DATE: SUBJECTIVE: Mr. Blancas is feeling better. He is still weak. PHYSICAL EXAMINATION: GENERAL: He is currently alert and oriented. VITAL SIGNS: Stable, afebrile currently. T-max 100.1. HEENT: Not icteric. NECK: Supple. CHEST: Few crackles. LABORATORY DATA: White count 5.66, hemoglobin 16, and platelet 221. Sodium 134, potassium 3.8. His liver enzyme within normal limit. This is day #2 of remdesivir. He is also on Rocephin, azithromycin, and Lovenox. We will follow. MD HOANG Merchant/MARIAN /[id number]
[2020-04-13] MEDS: CEFTRIAXONE SOD 2 GM/NS 100 ML 100 ML IV SCH (15:00)
--- NOTE | 2020-04-13 15:25 | Progress Note ---
DATE: SUBJECTIVE: The patient has less dyspnea. He still has some dyspnea on exertion. He still has some cough. He is complaining of mild fever. He started remdesivir. PHYSICAL EXAMINATION: VITAL SIGNS: Blood pressure is 117/83 and saturation is 100%. Pulse is 71. HEENT: Shows no facial swelling or erythema. CARDIAC: Reveals regular rate and rhythm with normal S1 and S2. LUNGS: Auscultation of lungs reveals clear breath sounds bilaterally. There is no wheezing. ABDOMEN: Soft and nontender. There is no rebound or guarding. EXTREMITIES: Shows no leg edema or calf tenderness. There is no cyanosis or clubbing. SKIN: Shows no rashes. LABORATORY DATA: Blood counts are within normal limits. The electrolytes, BUN, and creatinine all within normal limits. IMPRESSION: 1. Viral pneumonia. 2. COVID-19 infection. PLAN: 1. Complete treatment with remdesivir. 2. Continue Tylenol. 3. Zithromax. 4. Oxygen. Cody Bill MD [facility]/MODL /[id number]
--- NOTE | 2020-04-13 15:35 | NUR ---
Nutrition Screen Note RD Recommendation for Physician: -Recommend regular diet -If PO intake <50% of meals, offer Ensure Enlive Plan of Care: RD following, monitoring for tolerance and adequacy Nutrition reason for involvement: Nutrition Risk Trigger- MST 2 Primary Diagnose(s): COVID-19, dyspnea PMH: none Ht: 67 in Wt: 170 lb BMI: 26.6 kg/m2 IBW: [address] Assessment: (04/13/20) Chart reviewed. Labs and meds reviewed. Pt is a 34 year old male admitted with COVID-19. Unable to enter room due to droplet isolation precautions since pt is COVID-19+. Attempted to call pt over the phone, but he did not answer. Called RN who stated pt was eating about 50% of his meals. No N/V/D/C reported at this time. Unable to obtain nutrition history at this time. Will continue to monitor. Current Diet: cardiac Malnutrition Evaluation (04/13/20) Unable to fully assess. Will re-evaluate at follow-up as appropriate. Diet Education Needs Assessment: Diet education not indicated. Nutrition Care Level: low Signed: Mandy Way, RD, LD
[2020-04-13] MEDS: SODIUM CHLORIDE IV SCH (17:27)
[2020-04-13] MEDS: REMDESIVIR IV SCH (17:27)
[2020-04-13] MEDS ORDERED: MELATONIN 5 MG TABLET PO PRN (21:00)
[2020-04-13] MEDS: ACETAMINOPHEN 325 MG TAB PO PRN (21:56)
[2020-04-14] VITALS (8 sets, daily range): BP systolic 112–125; BP diastolic 72–85
--- NOTE | 2020-04-14 06:06 | NUR ---
Pt resting in bed, a/o x4. States sleep aid did help. No s/sx of acute distress noted, denies discomfort at this time. Bed in low position, call light and personal items within reach.
[2020-04-14] MEDS: ENOXAPARIN 30 MG/0.3 ML SYR SC SCH ×2 (08:45→20:53)
[2020-04-14] MEDS: DIPHENHYDRAMINE HCL 30 GM TUBE TOP PRN ×2 (09:00→20:54)
--- NOTE | 2020-04-14 10:21 | NUR ---
Received order to set up home O2. CM called pt and spoke to him regarding order and self pay prices. Choice obtained for [facility]. Choice letter placed in chart. Referral faxed to [facility] at [phone] Grant Benavides was notified of referral and said he will deliver portable tank today.
--- NOTE | 2020-04-14 12:08 | Progress Note ---
DATE: SUBJECTIVE: The patient is down to 2 L. He has some desaturation with ambulation. Overall, he feels better. PHYSICAL OBJECTIVE: VITAL SIGNS: The blood pressure is 118/84 and saturation is 96% on 2 L. HEENT: Shows no facial swelling or erythema. CARDIAC: Reveals regular rate and rhythm with normal S1 and S2. LUNGS: Auscultation of lungs reveals rhonchus breath sounds bilaterally. There is no wheezing. ABDOMEN: Soft, nontender. There is no rebound or guarding. EXTREMITIES: Shows no leg edema or calf tenderness. ASSESSMENT: 1. Viral pneumonia. 2. Coronavirus disease -19 infection. 3. Cough. PLAN: 1. Complete remdesivir. 2. Oxygen. 3. Cough suppressants. 4. Tylenol. Cody Bill MD [facility]/MODL /[id number]
[2020-04-14] MEDS ORDERED: LORAZEPAM 0.5 MG TAB PO ONE (12:30)
[2020-04-14] MEDS: AZITHROMYCIN 500MG/NS 250 ML 250 ML IV SCH (13:10)
[2020-04-14] MEDS: CEFTRIAXONE SOD 2 GM/NS 100 ML 100 ML IV SCH (15:19)
--- NOTE | 2020-04-14 16:29 | NUR ---
PROGRESS NOTE [id number]
[2020-04-14] MEDS: SODIUM CHLORIDE IV SCH (17:26)
[2020-04-14] MEDS: REMDESIVIR IV SCH (17:26)
--- NOTE | 2020-04-14 19:12 | NUR ---
Nursing report received from morning nurse. Pt no acute distress.
--- NOTE | 2020-04-14 19:50 | Progress Note ---
DATE: SUBJECTIVE: Mr. Blancas is feeling much better. He is weak still. REVIEW OF SYSTEMS: Otherwise unremarkable. PHYSICAL EXAMINATION: GENERAL: He is currently alert, oriented, does not seem acute distress. VITAL SIGNS: Stable, afebrile. HEENT: He is not icteric. NECK: Supple. CHEST: Clear. HEART: S1, S2. No S3, S4, or murmur. ABDOMEN: Soft. IMPRESSION: COVID-19, clinically improving. PLAN: The plan is to continue home tomorrow. He may need home oxygen. We will follow. MD HOANG Merchant/MARIAN /[id number]
[2020-04-15] MEDS: ENOXAPARIN 30 MG/0.3 ML SYR SC SCH (08:36)
[2020-04-15 08:48] VITALS: BP 114/74
[2020-04-15 08:50] VITALS: BP 114/74
[2020-04-15] MEDS ORDERED: NON-FORMULARY MEDICATION IV SCH (10:00)
--- NOTE | 2020-04-15 10:02 | Progress Note ---
DATE: SUBJECTIVE: The patient feels better. He is down to 2 L of oxygen. He is completing his remdesivir today. He is very eager to go home. PHYSICAL EXAMINATION: VITAL SIGNS: Blood pressure is 114/74 and saturation is 97% on 2 L. HEENT: Shows no facial swelling or erythema. CARDIAC: Reveals regular rate and rhythm with a normal S1, S2. LUNGS: Auscultation of lungs reveal rhonchorous breath sounds bilaterally. There is no wheezing. ABDOMEN: Soft and nontender. There is no rebound or guarding. EXTREMITIES: Shows no leg edema or calf tenderness. There is no cyanosis or clubbing. SKIN: Shows no rashes. IMPRESSION: 1. Viral pneumonia. 2. Coronavirus disease-19 infection. PLAN: 1. Complete remdesivir. 2. Oxygen at home. 3. Tylenol, cough suppressants. 4. The patient should remain in self quarantine until he is symptom-free. He should be followed up prior to returning to work or social activities to ensure that he is not infectious. MD WALDO Carrillo/MARIAN /[id number]
--- NOTE | 2020-04-15 11:52 | Diagnostic Imaging Report ---
EXAMINATION: CHEST SINGLE (PORTABLE) INDICATION: COVID-19 infection COMPARISON: Chest radiograph 04/12/2020. FINDINGS: TUBES and LINES: None. LUNGS: Low lung volumes. Slightly increased bilateral interstitial and bibasilar opacities. PLEURA: No pleural effusion or pneumothorax. HEART AND MEDIASTINUM: The cardiomediastinal silhouette is unremarkable. BONES AND SOFT TISSUES: No acute osseous lesion. Soft tissues are unremarkable. UPPER ABDOMEN: No free air under the diaphragm. IMPRESSION: Low lung volumes with slightly increased bilateral interstitial and bibasilar opacities, suggestive of atypical infection versus pulmonary edema. Signed by: Dr. Duong Perkins MD on 04/15/2020 11:48 AM
[2020-04-15 11:56] LABS: BASOPHILS % 0.2 % (0.0-1.0); EOSINOPHILS # (AUTO) 0.1 (0.0-0.4); EOSINOPHILS % 1.9 % (0.0-6.0); HEMATOCRIT 47.8 % (38.2-49.6); HEMOGLOBIN 16.2 g/dL (14.0-18.0); LYMPHOCYTES # (AUTO) 0.9 (1.0-3.2); MEAN CORPUSCULAR HEMOGLOBIN 29.8 pg (28-32); MEAN CORPUSCULAR HGB CONC 33.9 g/dL (31-35); MEAN CORPUSCULAR VOLUME 87.9 fL (81-99); MONOCYTES # (AUTO) 0.4 (0.2-0.8); MONOCYTES % 8.9 % (4.4-11.3); NEUTROPHILS # (AUTO) 2.8 (2.1-6.9); NEUTROPHILS % 67.8 % (38.7-80.0); PLATELET COUNT 320 x10e3/uL (140-360); RED BLOOD COUNT 5.44 x10e6/uL (4.3-5.7); RED CELL DISTRIBUTION WIDTH 12.4 % (11.7-14.4)
[2020-04-15 11:57] VITALS: BP 116/74
[2020-04-15 12:20] LABS: ANION GAP 17.1 mmol/L (8-16); BLOOD UREA NITROGEN 15 mg/dL (7-26); BUN/CREATININE RATIO 16 (6-25); CALCIUM 9.1 mg/dL (8.4-10.2); CARBON DIOXIDE 24 mmol/L (22-29); CHLORIDE 103 mmol/L (98-107); CREATININE, SERUM 0.91 mg/dL (0.72-1.25); EST GLOMERULAR FILTRATION RATE > 60 ML/MIN (60-); GLUCOSE 86 mg/dL (74-118); POTASSIUM 4.1 mmol/L (3.5-5.1); SODIUM 140 mmol/L (136-145)
[2020-04-15] MEDS: AZITHROMYCIN 500MG/NS 250 ML 250 ML IV SCH (13:10)
[2020-04-15] MEDS: CEFTRIAXONE SOD 2 GM/NS 100 ML 100 ML IV SCH (15:00)
--- NOTE | 2020-04-15 16:00 | NUR ---
Dr. Cobian was here to see pt and states pt can be discharged from his standpoint. No orders or prescriptions for home antibiotics given.
[2020-04-15 16:38] VITALS: BP 113/74
--- NOTE | 2020-04-15 16:42 | NUR ---
Pt discharged home at this time. Pt is being discharged with home oxygen and demonstrated understanding of how to self administer oxygen. Pt aox3 at time of discharge. 0 s/s of acute distress noted at time of discharge. Pt verbalized understanding of all discharge instructions and follow up appointments. COVID 19 discharge instructions reviewed with pt and he verbalized understanding.
--- NOTE | 2020-04-15 17:44 | Progress Note ---
DATE: SUBJECTIVE: Mr. Blancas is feeling better today. He wants to go home. REVIEW OF SYSTEMS: HEENT: Negative. PULMONARY: Negative. CARDIAC: Negative. PHYSICAL EXAMINATION: GENERAL: He is currently alert, oriented, does not seem in acute distress. VITALS: Stable, currently afebrile. HEENT: He is not icteric. NECK: Supple. CHEST: Clear. HEART: S1 and S2. ABDOMEN: Soft. IMPRESSION: COVID-19 status post remdesivir for 4 days, doing very well. The patient to be discharged home with a Z-Reji. Follow up as outpatient three weeks. Home quarantine for 3 weeks. Answered all his question. Until we get negative PCR, 3 weeks to stay in home quarantine. MD HOANG Merchant/MARIAN /[id number]
--- NOTE | 2020-04-16 06:06 | Discharge Summary ---
ADMISSION DIAGNOSIS: COVID-19 pneumonia, present on admission with hypoxia. DISCHARGE DIAGNOSIS: COVID-19 pneumonia, present on admission with hypoxia. HISTORY: None. SURGICAL HISTORY: Left knee surgery. FAMILY HISTORY: Noncontributory. SOCIAL HISTORY: Noncontributory. HOSPITAL COURSE: A 34-year-old male, admits with complaints of dry cough, shortness of breath, and dyspnea on exertion for a few days. He found out his COVID test with positive while driving to the ER. He denies nausea or vomiting. He admitted to going camping in [place] recently. On admission, COVID was negative. Chest x-ray showed low lung volumes, otherwise no acute cardiopulmonary process. Infectious Disease and pulmonology were consulted. The patient was started on Lovenox, remdesivir, and convalescent plasma. The patient required oxygen, so was arranged prior to discharge home. He will discharge and follow up with primary care in 1 to [address] Cobian in 2 to 4 weeks. The patient understands discharge instructions and agrees to plan. Vital signs are stable. The patient is afebrile. Dictated by Donna Alvarez NP MD HARRISON Cid/MARIAN /[id number]
== END 2020-04-15 16:30 | disposition home or self-care (01) | DRG 177 ==
LOC: ER 14:14 → ERHOLD 14:56 → IMCU 17:39
PROVIDERS: ADMIT Internal Medicine; ATTEND Internal Medicine
DX: U07.1 COVID-19 (principal); J12.89 Other viral pneumonia; R09.02 Hypoxemia
CPT/HCPCS: 36415; 36600; 71045; 80048; 80053; 82550; 82553; 82948; 84484; 85025; 86850; 86900; 87040; 87635; 93005; 99284; J0456; J0696; J1200; J1650; J2930; J7050; P9017

== ENCOUNTER 2021-05-18 16:18 | Emergency (ER) | payer SELFPAY ==
[~2021-05-18] VITALS: Ht 170.2 cm; Wt 77.1 kg
[2021-05-18] MEDS ORDERED: KETOROLAC TROMETHAMINE 30 MG/ML VIAL IV ONE (16:45)
[2021-05-18] MEDS ORDERED: ASPIRIN 81 MG CHEW TAB PO ONE (16:45)
[2021-05-18 16:54] LABS: BASOPHILS % 0.5 % (0.0-1.0); EOSINOPHILS # (AUTO) 0.1 (0.0-0.4); EOSINOPHILS % 1.7 % (0.0-6.0); HEMATOCRIT 45.4 % (38.2-49.6); HEMOGLOBIN 15.3 g/dL (14.0-18.0); LYMPHOCYTES # (AUTO) 1.6 (1.0-3.2); LYMPHOCYTES % 20.5 % (18.0-39.1); MEAN CORPUSCULAR HEMOGLOBIN 30.6 pg (28-32); MEAN CORPUSCULAR HGB CONC 33.7 g/dL (31-35); MEAN CORPUSCULAR VOLUME 90.8 fL (81-99); MONOCYTES # (AUTO) 0.6 (0.2-0.8); MONOCYTES % 7.9 % (4.4-11.3); NEUTROPHILS # (AUTO) 5.3 (2.1-6.9); PLATELET COUNT 293 x10e3/uL (140-360); RED CELL DISTRIBUTION WIDTH 12.8 % (11.7-14.4)
[2021-05-18 17:13] LABS: ALANINE AMINOTRANSFERASE 16 IU/L (0-55); ALBUMIN 4.2 g/dL (3.5-5.0); ALBUMIN/GLOBULIN RATIO 1.1 (0.8-2.0); ALKALINE PHOSPHATASE 66 IU/L (40-150); BLOOD UREA NITROGEN 16 mg/dL (7-26); BUN/CREATININE RATIO 13 (6-25); CALCIUM 8.8 mg/dL (8.4-10.2); CARBON DIOXIDE 22 mmol/L (22-29); CHLORIDE 104 mmol/L (98-107); CREATINE KINASE 103 IU/L (30-200); EST GLOMERULAR FILTRATION RATE 68 ML/MIN (60-); GLUCOSE 98 mg/dL (74-118); SODIUM 137 mmol/L (136-145)
[2021-05-18 19:54] VITALS: BP 123/88
== END 2021-05-18 20:01 | disposition home or self-care (01) ==
LOC: ER 17:07
DX: R07.89 Other chest pain (principal); R94.31 Abnormal electrocardiogram [ECG] [EKG]; R05 Cough
CPT/HCPCS: 36415; 71046; 80053; 82550; 82553; 84484; 85025; 85379; 93005; 99284; J1885

== ENCOUNTER 2021-06-11 16:52 | Emergency (ER) | payer SELFPAY ==
[~2021-06-11] VITALS: Ht 170.2 cm; Wt 77.1 kg
[2021-06-11] MEDS ORDERED: DIPHENHYDRAMINE HCL INJ 50 MG/ML VIAL IV STA (17:17)
[2021-06-11] MEDS ORDERED: FAMOTIDINE 20 MG/2 ML VIAL IV STA (17:17)
[2021-06-11] MEDS ORDERED: DEXAMETHASONE SOD PHOS 10 MG/1 ML VIAL IV ONE (17:30)
[2021-06-11 17:38] LABS: BASOPHILS # (AUTO) 0.1 (0.0-0.1); BASOPHILS % 0.7 % (0.0-1.0); EOSINOPHILS # (AUTO) 0.2 (0.0-0.4); EOSINOPHILS % 2.8 % (0.0-6.0); HEMATOCRIT 41.7 % (38.2-49.6); LYMPHOCYTES # (AUTO) 1.4 (1.0-3.2); LYMPHOCYTES % 20.7 % (18.0-39.1); MEAN CORPUSCULAR HGB CONC 33.6 g/dL (31-35); MEAN CORPUSCULAR VOLUME 89.3 fL (81-99); MONOCYTES # (AUTO) 0.5 (0.2-0.8); MONOCYTES % 7.7 % (4.4-11.3); NEUTROPHILS # (AUTO) 4.5 (2.1-6.9); NEUTROPHILS % 67.8 % (38.7-80.0); PLATELET COUNT 301 x10e3/uL (140-360); RED BLOOD COUNT 4.67 x10e6/uL (4.3-5.7); RED CELL DISTRIBUTION WIDTH 12.3 % (11.7-14.4)
[2021-06-11 17:54] LABS: ANION GAP 12.8 mmol/L (8-16); CREATININE, SERUM 0.99 mg/dL (0.72-1.25); POTASSIUM 3.8 mmol/L (3.5-5.1)
[2021-06-11] MEDS ORDERED: IOPAMIDOL 370 MG/ML 200 ML INFUS..BTL INJ ONE (18:17)
[2021-06-11] MEDS ORDERED: SODIUM CHLORIDE 0.9% 50ML 50 ML ONE (18:17)
[2021-06-11] MEDS ORDERED: DOXYCYCLINE HY100 MG PO (19:21)
== END 2021-06-11 20:00 | disposition home or self-care (01) ==
LOC: ER 17:30
DX: L03.221 Cellulitis of neck (principal)
CPT/HCPCS: 36415; 70491; 80048; 85025; 99283; J1100; J1200; Q9967; U0002